=== PATIENT | male | born 1945 ===

== ENCOUNTER 2017-02-20 15:16 | Emergency (ER) | payer OTHER ==
[2017-02-20 15:25] VITALS: BP 122/83; RESP 16; TEMP 97.7; O2SAT 100
--- NOTE | 2017-02-20 16:05 | ED PDOC ---
HPI: Dental Pain/Injury Time Seen by Provider: 02/20/17 15:16 Chief Complaint (Nursing): Dental Pain Chief Complaint (Provider): Dental Pain History Per: Patient History/Exam Limitations: no limitations Onset/Duration Of Symptoms: Days (x2 days) Current Symptoms Are (Timing): Still Present Additional Complaint(s): 71 y/o male presents to the emergency department with a complaint of a right lower dental pain x2 days. Reports taking Motrin with minimal relief of pain. Denies fever. Past Medical History Reviewed: Historical Data, Nursing Documentation, Vital Signs Vital Signs: Last Vital Signs Temp 97.7 F 02/20/17 15:22 Pulse 97 H 02/20/17 15:22 Resp 16 02/20/17 15:22 BP 122/83 02/20/17 15:22 Pulse Ox 100 02/20/17 15:22 - Medical History PMH: No Chronic Diseases - Surgical History Surgical History: Hernia Repair (Inguinal) - Family History Family History: States: Unknown Family Hx - Social History Current smoker - smoking cessation education provided: No Alcohol: None Drugs: Denies - Home Medications Home Medications: Ambulatory Orders Medication Instructions Recorded Penicillin VK [Pen-Vee K] 1 tab PO QID #40 tab 02/20/17 traMADol [Ultram] 50 mg PO Q6 PRN #5 tab 02/20/17 - Allergies Allergies/Adverse Reactions: Allergies Allergy/AdvReac Type Severity Reaction Status Date / Time No Known Allergies Allergy Verified 02/20/17 15:22 Review of Systems ROS Statement: Except As Marked, All Systems Reviewed And Found Negative ENT: Positive for: Mouth Pain (Lower right dental pain) Physical Exam - Reviewed Nursing Documentation Reviewed: Yes Vital Signs Reviewed: Yes - Physical Exam Appears: Positive for: Non-toxic, No Acute Distress Head Exam: Positive for: ATRAUMATIC, NORMAL INSPECTION, NORMOCEPHALIC Skin: Positive for: Normal Color, Warm, Dry ENT: Positive for: Other (Poor dentition with missing teeth. Tenderness to the right lower premolar (#29) noted with gingival swelling and irritation. ) Neurologic/Psych: Positive for: Alert, Oriented - ECG O2 Sat by Pulse Oximetry: 100 (RA) Pulse Ox Interpretation: Normal Medical Decision Making Medical Decision Making: Time: 15:16 Initial Impression: Dental pain Time: 16:26 Upon provider reevaluation patient is feeling better, is medically stable, and requires no further treatment in the ED at this time. Patient will be discharged home with Rx for Pen-Vee K and Ultram 50 mg. Counseling was provided and all questions were answered regarding diagnosis and need for follow up with Dr. Hema Lombardi DDS. There is agreement to discharge plan. Return if symptoms persist or worsen. Clinical Impression: Toothache Scribe Attestation: Documented by Lara Corrales, acting as a scribe for Jorge Alberto Antoine PA-C. Provider Scribe Attestation: All medical record entries made by the Scribe were at my direction and personally dictated by me. I have reviewed the chart and agree that the record accurately reflects my personal performance of the history, physical exam, medical decision making, and the department course for this patient. I have also personally directed, reviewed, and agree with the discharge instructions and disposition. Disposition - Clinical Impression Clinical Impression: Toothache - Disposition Referrals: Hema Lombardi DDS [Staff Provider] - Disposition: Routine/Home Condition: FAIR Prescriptions: Penicillin VK [Pen-Vee K] 1 tab PO QID #40 tab traMADol [Ultram] 50 mg PO Q6 PRN #5 tab PRN Reason: Pain, Severe (8-10) Instructions: Toothache (ED) Print Language: UKRAINIAN
[2017-02-20 16:22] VITALS: PULSE 86
== END 2017-02-20 16:21 | disposition home or self-care (01) ==
LOC: H.ER 15:16
DX: K08.89 Other specified disorders of teeth and supporting structures (principal)